=== PATIENT | female | born 1990 | race Caucasian/White ===

== ENCOUNTER 2017-11-30 19:38 | Emergency (ER) | payer SELFPAY ==
[~2017-11-30] VITALS: Ht 160 cm; Wt 111.2 kg
[~2017-11-30 19:38] MED LIST: HYDROCODON-ACE1 EAC7 PO; NAPROSYN500 MG PO; NO HOME MEDS; VICODIN,LORT1 TABLET PO; ZOFRAN4 MG PO
[2017-11-30 20:56] LABS: HEMATOCRIT 41.6 % (36.0-46.0); HEMOGLOBIN 13.5 G/DL (11.9-15.5); MCH 27.8 PG (29.0-34.0); MCHC 32.5 G/DL (30.0-36.0); MCV 85.8 FL (83-99); PLATELET COUNT 423 K/uL (156-360); RBC DIS.WIDTH-CV 13.2 % (11.8-14.6); RBC DIS.WIDTH-SD 41.4 % (39-53); RED BLOOD COUNT 4.85 M/uL (3.80-5.20); WHITE BLOOD COUNT 11.4 K/uL (4.1-10.2)
[2017-11-30 21:00] LABS: CHLORIDE 107 mEq/L (99-109); POTASSIUM 3.9 mEq/L (3.7-5.4); SODIUM 139 mEq/L (136-147)
[2017-11-30 21:01] LABS: GLUCOSE 104 mg/dL (70-99)
[2017-11-30 21:05] LABS: CREATININE 0.6 mg/dL (0.6-1.3); GFR ESTIMATE (CALCULATED) > 59 mL/min/
[2017-11-30 21:06] LABS: UREA NITROGEN (BUN) 7 mg/dL (9-23)
[2017-11-30 21:14] LABS: QUANTITATIVE HCG < 4.0 MIU/ML
[2017-12-01 00:24] LABS: APPEARANCE SL.HAZY ((CLEAR)); BILIRUBIN NEGATIVE; BLOOD MODERATE; COLOR YELLOW ((YELLOW)); GLUCOSE (STRIP) NEGATIVE; KETONES 80; LEUKOCYTES LARGE; NITRITE NEGATIVE; PROTEIN (STRIP) NEGATIVE; SPECIFIC GRAVITY 1.017 (1.000-1.030); UROBILINOGEN 0.2 MG/DL (0.2-1.0)
[2017-12-01 00:29] LABS: BACTERIA 1+ /HPF; EPITHELIAL CELLS 1+ /HPF; MUCUS TRACE /LPF; UCUL ADDED? YES
[2017-12-01] MEDS ORDERED: MOTRIN600 MG PO (00:48)
[2017-12-01] MEDS ORDERED: BACTRIM,SEPT1 TABLET PO (00:48)
[2017-12-01 01:23] VITALS: BP 128/85
== END 2017-12-01 01:24 | disposition home or self-care (01) ==
LOC: EME 19:38
DX: N92.6 Irregular menstruation, unspecified (principal); N39.0 Urinary tract infection, site not specified; F41.9 Anxiety disorder, unspecified
CPT/HCPCS: 76856; 80048; 81003; 84702; 85027; 87086; 99281; 99285; J1885

== ENCOUNTER 2017-12-05 00:05 | Emergency (ER) | payer SELFPAY ==
[~2017-12-05] VITALS: Ht 160 cm; Wt 111.2 kg
[~2017-12-05 00:05] MED LIST changes: +BACTRIM,SEPT1 TABLET PO; +MOTRIN600 MG PO
[2017-12-05 01:53] LABS: APPEARANCE TURBID ((CLEAR)); BILIRUBIN NEGATIVE; BLOOD NEGATIVE; COLOR YELLOW ((YELLOW)); GLUCOSE (STRIP) NEGATIVE; KETONES 20; LEUKOCYTES LARGE; NITRITE NEGATIVE; PROTEIN (STRIP) 30; UROBILINOGEN 0.2 MG/DL (0.2-1.0)
[2017-12-05 02:07] LABS: BACTERIA 2+ /HPF; EPITHELIAL CELLS 2+ /HPF; RED BLOOD CELLS 0-5 /HPF (0-5); UCUL ADDED? YES; URIC ACID CRYSTALS 3+ /HPF
[2017-12-05 02:08] LABS: MUCUS RARE /LPF
[2017-12-05 02:11] LABS: HEMATOCRIT 38.1 % (36.0-46.0); HEMOGLOBIN 12.5 G/DL (11.9-15.5); MCH 28.3 PG (29.0-34.0); MCHC 32.8 G/DL (30.0-36.0); MCV 86.2 FL (83-99); PLATELET COUNT 375 K/uL (156-360); RBC DIS.WIDTH-CV 13.3 % (11.8-14.6); RBC DIS.WIDTH-SD 41.9 % (39-53); RED BLOOD COUNT 4.42 M/uL (3.80-5.20); WHITE BLOOD COUNT 8.4 K/uL (4.1-10.2)
[2017-12-05 02:26] LABS: ALBUMIN 4.3 g/dL (3.2-4.8); CHLORIDE 107 mEq/L (99-109); POTASSIUM 4.3 mEq/L (3.7-5.4); SODIUM 140 mEq/L (136-147)
[2017-12-05 02:28] LABS: GLUCOSE 104 mg/dL (70-99); TOTAL PROTEIN 7.5 g/dL (6.4-8.3)
[2017-12-05] MEDS ORDERED: KEFLEX500 MG PO (02:28)
[2017-12-05] MEDS ORDERED: MUPIROCIN15 GM TP (02:28)
[2017-12-05 02:30] LABS: TOTAL BILIRUBIN 0.3 mg/dL (0.0-1.0)
[2017-12-05 02:32] LABS: ALKALINE PHOSPHATASE 90 IU/L (3-129); CREATININE 0.8 mg/dL (0.6-1.3); GFR ESTIMATE (CALCULATED) > 59 mL/min/
[2017-12-05 02:33] LABS: UREA NITROGEN (BUN) 13 mg/dL (9-23)
[2017-12-05 02:34] LABS: AST (GOT) 24 IU/L (2-34)
[2017-12-05 02:35] LABS: ALT (GPT) 38 IU/L (3-49)
[2017-12-05 03:00] VITALS: BP 123/97
== END 2017-12-05 03:35 | disposition home or self-care (01) ==
LOC: EME 00:05
PROVIDERS: Emergency Medicine
DX: N30.90 Cystitis, unspecified without hematuria (principal); L01.00 Impetigo, unspecified; M79.89 Other specified soft tissue disorders; F41.9 Anxiety disorder, unspecified
CPT/HCPCS: 80053; 81003; 85027; 87086; 99281; 99284